=== PATIENT | male | born 1975 | race Caucasian/White ===

== ENCOUNTER 2016-12-06 10:58 | Emergency (ER) | payer OTHER ==
[~2016-12-06] VITALS: Ht 177.8 cm; Wt 84.2 kg
[2016-12-06] MEDS ORDERED: CLEOCIN300 MG PO (12:31)
[2016-12-06 12:49] VITALS: BP 138/97
== END 2016-12-06 12:57 ==
LOC: EME 10:58
DX: L03.012 Cellulitis of left finger (principal)
CPT/HCPCS: 73140; 99281; 99284